=== PATIENT | female | born 1995 | race African-American/Black ===

== ENCOUNTER 2016-10-31 16:46 | Emergency (ER) | payer OTHER ==
[2016-10-31 17:36] VITALS: BP 116/91
--- NOTE | 2016-10-31 18:54 | UC ---
Abdominal Pain Female HPI - HPI Summary HPI Summary: HAD WHAT SHE THOUGHT WAS GAS PAIN 5 DAYS AGO. 2 DAYS AGO STARTED WITH PERIUMBILICAL PAIN THAT IS WORSE WITH INCREASED INTRA-ABDOMINAL PRESSURE ( COUGHING, LAUGHING, SNEEZING). NO NAUSEA, NO FEVER, NO URINARY SX. NO CHANGE IN BOWEL HABITS. LAST BM THIS MORNING WAS NORMAL. HAS NEVER BEEN . - History of Current Complaint Chief Complaint: UCAbdominalPain Stated Complaint: ABDOMINAL COMPLAINT Time Seen by Provider: 10/31/16 18:46 Hx Obtained From: Patient Hx Last Menstrual Period: 10/09/16 Onset/Duration: Gradual Onset, Lasting Days, Still Present Severity Initially: Moderate Severity Currently: Moderate Pain Intensity: 6 Pain Scale Used: 0-10 Numeric Location: Other - PERIUMBILICALLY Radiates: No Character: Sharp Aggravating Factor(s): Other: - COUGH, LAUGHING, SNEEZING Alleviating Factor(s): Spontaneous Resolution Associated Signs and Symptoms: Positive: Negative Allergies/Adverse Reactions: Allergies Allergy/AdvReac Type Severity Reaction Status Date / Time Sulfamethoxazole Allergy Severe Hives Verified 10/31/16 17:36 w/Trimethoprim [From Bactrim] Home Medications: Home Medications Control* 1 tab PO DAILY 10/31/16 [History Confirmed 10/31/16] Multiple Vitamins W/ Minerals [Multivitamin Adults] 1 tab PO DAILY 10/31/16 [ History Confirmed 10/31/16] PMH/Surg Hx/FS Hx/Imm Hx Respiratory History: Asthma - Surgical History Surgical History: None - Family History Known Family History: Positive: Diabetes - Social History Alcohol Use: Occasionally Substance Use Type: None Smoking Status (MU): Never Smoked Tobacco Review of Systems Constitutional: Negative Respiratory: Negative Cardiovascular: Negative Gastrointestinal: Abdominal Pain All Other Systems Reviewed And Are Negative: Yes Physical Exam Triage Information Reviewed: Yes Appearance: Well-Appearing, No Pain Distress, Well-Nourished Vital Signs: Initial Vital Signs Temp 98.1 F 10/31/16 17:32 Pulse 70 10/31/16 17:32 Resp 16 10/31/16 17:32 BP 116/91 10/31/16 17:32 Pulse Ox 100 10/31/16 17:32 Vital Signs Reviewed: Yes Eyes: Positive: Conjunctiva Clear ENT: Positive: Hearing grossly normal Neck: Positive: Supple Respiratory: Positive: No respiratory distress, No accessory muscle use Cardiovascular: Positive: Pulses Normal Abdomen Description: Positive: Soft, Other: - TTP PERIUMBILICALLY. NO REBOUND. DIASTASIS RECTI PALPATED. NO PALPABLE HERNIA. Negative: CVA Tenderness (R), CVA Tenderness (L), Distended, Guarding Musculoskeletal: Positive: No Edema Neurological: Positive: Alert Psychological: Positive: Age Appropriate Behavior - PT TEARFUL DUE TO PAIN AND ANXIETY Skin: Negative: rashes Abd Pain Female Course/Dx - Course Course Of Treatment: TO [facility] BY PRIVATE CAR - Differential Dx/Diagnosis Provider Diagnoses: ABDOMINAL PAIN, NOS Discharge - Discharge Plan Condition: Stable Disposition: OTHER Discharge Disposition Comment: TO [facility] BY PRIVATE CAR Patient Education Materials: Abdominal Pain (ED) Additional Instructions: GO DIRECTLY TO THE ER FROM HERE FOR FURTHER EVALUATION. CALL THE NUMBER BELOW FOR ASSISTANCE IN ESTABLISHING WITH A PCP An additional resource available to assist in finding the appropriate physician for your health care needs is the [facility] ([facility]). You may contact them by calling [phone].
== END 2016-10-31 19:00 ==
LOC: UCEAST 16:46
DX: R10.33 Periumbilical pain (principal); Z88.2 Allergy status to sulfonamides; Z88.1 Allergy status to other antibiotic agents
CPT/HCPCS: 99202; G0463

== ENCOUNTER → 2016-10-31 19:24 | Emergency (ER) | payer OTHER ==
[~2016-10-31 19:24] MED LIST: Iohexol 300* (CONTRAST) 10 ML SDV IV ONE; Ketorolac INJ* 30 MG/ML 1 ML VIAL IV ONE; Ondansetron INJ* 2 MG/ML VIAL IV ONE
[2016-11-01 01:37] LABS: Hematocrit 38 % (35-47); Hemoglobin 12.8 g/dl (12.0-16.0); Mean Corpuscular HGB Conc 34 g/dl (31-36); Mean Corpuscular Hemoglobin 28 pg (27-31); Mean Corpuscular Volume 83 fL (80-97); Mean Platelet Volume 8 um3 (7.4-10.4); Red Blood Count 4.52 10^6/ul (4.0-5.4); Red Cell Distribution Width 13 % (10.5-15); White Blood Count 8.8 10^3/ul (3.5-10.8)
[2016-11-01 01:42] LABS: Urine Bacteria Absent (Absent); Urine Bilirubin Negative (Negative); Urine Glucose Negative (Negative); Urine Nitrite Negative (Negative)
[2016-11-01 01:56] LABS: ALT 6 U/L (7-52); AST 10 U/L (13-39); Albumin 4.3 g/dL (3.2-5.2); Alkaline Phosphatase 30 U/L (34-104); Anion Gap 8 mmol/L (2-11); BUN/Creatinine Ratio 10.2 (8-20); Blood Urea Nitrogen 10 mg/dL (6-24); CO2 Carbon Dioxide 26 mmol/L (22-32); Calcium 9.1 mg/dL (8.6-10.3); Chloride 104 mmol/L (101-111); EGFR African American 92.1 (>60); EGFR Non-African American 71.6 (>60); Globulin 2.8 g/dL (2-4); Glucose 91 mg/dL (70-100); Lipase 33 U/L (11.0-82.0); Potassium 3.4 mmol/L (3.5-5.0); Sodium 138 mmol/L (133-145); Total Protein 7.1 g/dL (6.4-8.9)
--- NOTE | 2016-11-01 02:26 | ED ---
Abdominal Pain/Female - HPI Summary HPI Summary: 21F presents with periumbilical pain for 3 days. She states she has a history of umbilical hernia since she was a baby that was never fixed. She states pain in her belly button is worst when she coughs and she laughs. She denies any nausea or vomiting. she denies any diarrhea or constipation. She denies any fever. She denies ever feeling this pain before. She denies any vaginal discharge. She denies any hematuria, flank pain, or dysuria. She states pain comes and goes but has been more consistent. She had no previous abdominal surgeries. She was sent from urgent care for a CT. - History of Current Complaint Chief Complaint: EDAbdPain Stated Complaint: ABD PAIN/SENT BY [facility] Time Seen by Provider: 11/01/16 00:06 Hx Last Menstrual Period: 10/09/16 Pain Intensity: 5 Allergies/Adverse Reactions: Allergies Allergy/AdvReac Type Severity Reaction Status Date / Time Sulfamethoxazole Allergy Severe Hives Verified 10/31/16 19:31 w/Trimethoprim [From Bactrim] PMH/Surg Hx/FS Hx/Imm Hx Endocrine/Hematology History: Denies: Hx Anticoagulant Therapy Cardiovascular History: Denies: Hx Hypertension Respiratory History: Reports: Hx Asthma Infectious Disease History: No Infectious Disease History: Denies: Traveled Outside the [place] in Last 30 Days - Family History Known Family History: Positive: Diabetes - Social History Alcohol Use: Occasionally Substance Use Type: Reports: None Smoking Status (MU): Never Smoked Tobacco Review of Systems Negative: Fever Negative: Chest Pain Negative: Shortness Of Breath Positive: Abdominal Pain. Negative: Vomiting, Diarrhea, Nausea All Other Systems Reviewed And Are Negative: Yes Physical Exam Triage Information Reviewed: Yes Vital Signs On Initial Exam: Initial Vitals Temp Pulse Resp BP Pulse Ox 97.7 F 60 16 128/83 100 10/31/16 19:27 10/31/16 19:27 10/31/16 19:27 10/31/16 19:27 10/31/16 19:27 Vital Signs Reviewed: Yes Appearance: Positive: Well-Appearing Skin: Positive: Warm, Dry Head/Face: Positive: Normal Head/Face Inspection Eyes: Positive: Normal, EOMI, Conjunctiva Clear ENT: Positive: Normal ENT inspection, Pharynx normal, TMs normal Respiratory/Lung Sounds: Positive: Clear to Auscultation, Breath Sounds Present Cardiovascular: Positive: Normal, RRR Abdomen Description: Positive: Soft, Other: - tenderness periumbilicial Bowel Sounds: Positive: Present - Odalys Coma Scale Coma Scale Total: 15 Diagnostics - Vital Signs Vital Signs Temp Pulse Resp BP Pulse Ox 10/31/16 22:00 98.4 F 71 18 133/79 100 10/31/16 19:27 97.7 F 60 16 128/83 100 - Laboratory Lab Results: Lab Results 11/01/16 11/01/16 11/01/16 Range/Units 01:00 01:11 01:11 WBC 8.8 (3.5-10.8) 10^3/ul RBC 4.52 (4.0-5.4) 10^6/ul Hgb 12.8 (12.0-16.0) g/dl Hct 38 (35-47) % MCV 83 (80-97) fL MCH 28 (27-31) pg MCHC 34 (31-36) g/dl RDW 13 (10.5-15) % Plt Count 315 (150-450) 10^3/ul MPV 8 (7.4-10.4) um3 Neut % (Auto) 61.5 (38-83) % Lymph % (Auto) 29.9 (25-47) % Ashe % (Auto) 7.0 (1-9) % Eos % (Auto) 1.3 (0-6) % Baso % (Auto) 0.3 (0-2) % Absolute Neuts (auto) 5.4 (1.5-7.7) 10^3/ul Absolute Lymphs (auto) 2.6 (1.0-4.8) 10^3/ul Absolute Monos (auto) 0.6 (0-0.8) 10^3/ul Absolute Eos (auto) 0.1 (0-0.6) 10^3/ul Absolute Basos (auto) 0 (0-0.2) 10^3/ul Absolute Nucleated RBC 0 10^3/ul Nucleated RBC % 0 Sodium 138 (133-145) mmol/L Potassium 3.4 L (3.5-5.0) mmol/L Chloride 104 (101-111) mmol/L Carbon Dioxide 26 (22-32) mmol/L Anion Gap 8 (2-11) mmol/L BUN 10 (6-24) mg/dL Creatinine 0.98 H (0.51-0.95) mg/dL Est GFR ( Amer) 92.1 (>60) Est GFR (Non-Af Amer) 71.6 (>60) BUN/Creatinine Ratio 10.2 (8-20) Glucose 91 (70-100) mg/dL Calcium 9.1 (8.6-10.3) mg/dL Total Bilirubin 0.40 (0.2-1.0) mg/dL AST 10 L (13-39) U/L ALT 6 L (7-52) U/L Alkaline Phosphatase 30 L (34-104) U/L C-React Prot High Sens 7.89 mg/L Total Protein 7.1 (6.4-8.9) g/dL Albumin 4.3 (3.2-5.2) g/dL Globulin 2.8 (2-4) g/dL Albumin/Globulin Ratio 1.5 (1-3) Lipase 33 (11.0-82.0) U/L Beta HCG, Quant < 0.60 mIU/mL Urine Color Yellow Urine Appearance Cloudy Urine pH 6.0 (5-9) Ur Specific Hamilton 1.012 (1.010-1.030) Urine Protein Negative (Negative) Urine Ketones Negative (Negative) Urine Blood Negative (Negative) Urine Nitrate Negative (Negative) Urine Bilirubin Negative (Negative) Urine Urobilinogen Negative (Negative) Ur Leukocyte Esterase 2+ H (Negative) Urine WBC (Auto) Trace(0-5/hpf) (Absent) Urine RBC (Auto) Trace(0-2/hpf) (Absent) Ur Squamous Epith Cells Present H (Absent) Urine Bacteria Absent (Absent) Urine Glucose Negative (Negative) Result Diagrams: 11/01/16 01:11 11/01/16 01:00 Lab Statement: Any lab studies that have been ordered have been reviewed, and results considered in the medical decision making process. Abdominal Pain Fem Course/Dx - Course Course Of Treatment: 21F presents with periumbilical pain for 3 days. She states she has a history of umbilical hernia since she was a baby that was never fixed. She states pain in her belly button is worst when she coughs and she laughs. She denies any nausea or vomiting. she denies any diarrhea or constipation. She denies any fever. She denies ever feeling this pain before. She denies any vaginal discharge. She denies any hematuria, flank pain, or dysuria. She states pain comes and goes but has been more consistent. on exam tenderness umblicius. labs normal. will get CT. patient signed out to dr alonzo pending CT for disposition - Diagnoses Differential Diagnosis: Positive: Appendicitis, Urinary Tract Infection, Other - hernia Provider Diagnoses: Abdominal pain Discharge - Discharge Plan Condition: Good Disposition: OTHER Discharge Disposition Comment: signed out to dr alonzo pending CT
--- NOTE | 2016-11-01 05:26 | ED ---
Shanell Duque Alfonso, scribed for Rick Ellison MD on 11/01/16 at 0344 . Progress - Progress Note Progress Note: CT A/P reveals, per radiologist, 1.4 cm involuting right ovarian cyst with small amount of pelvic free fluid. No definite acute pathology. ED physician has reviewed this radiology report and agrees. Course/Dx - Course Course Of Treatment: DISCUSSED RESULTS OF LABS/CT WITH PATIENT. ON EXAM, HER UMBILICUS IS TENDER TO PALPATION. THERE IS NO INCARCERATED HERNIA ON CT. THE PLAN IS IBUPROFEN PRN AND F/U WITH [facility]; RETURN IF WORSE. - Diagnoses Provider Diagnoses: Abdominal pain, Ovarian cyst, Umbilical hernia The documentation as recorded by the Shanell landeros Alfonso accurately reflects the service I personally performed and the decisions made by me, Rick Ellison MD.
[2016-11-01 05:54] VITALS: BP 110/76
--- NOTE | 2016-11-01 08:02 | RAD ---
CLINICAL HISTORY: Periumbilical pain COMPARISON: None TECHNIQUE: Multiple contiguous axial CT scans were obtained of the abdomen and pelvis after the administration of intravenous contrast. Coronal and sagittal multiplanar reformations are submitted for review. Oral contrast was administered. Delayed images were obtained through the abdomen and pelvis. FINDINGS: LUNG BASES: The lung bases are clear. LIVER: The liver measures up to 19 cm in long axis. BILE DUCTS: There is no intrahepatic or extrahepatic biliary dilatation. GALLBLADDER: The gallbladder is normal, without pericholecystic inflammatory change. PANCREAS: The pancreas is normal, without mass or ductal dilatation. SPLEEN: Normal in size and appearance. UPPER GI TRACT: Evaluation of the gastrointestinal tract is limited by incomplete gastric distention. The upper GI tract is unremarkable. SMALL BOWEL AND MESENTERY: The small bowel is normal in contour, course, and caliber. There is no obstruction or dilatation. COLON: The colon is normal in contour, course, caliber. There is no pericolonic inflammatory change. There is a tubular, vermiform, hollow viscus that is blind ending, and originates from the cecum, consistent with a normal appendix. There is no periappendiceal inflammatory change. This is best seen on coronal image 39 ADRENALS: Normal bilaterally. KIDNEYS: The kidneys are normal in shape, size, contour, and axis. There is no hydronephrosis or nephrolithiasis. BLADDER: The bladder is smooth in contour. PELVIC ORGANS: There is a 1.4 cm right ovarian cyst. There is a small amount of free fluid within the pelvic cul-de-sac. AORTA: The aorta is normal. IVC: Unremarkable LYMPH NODES: There is no lymphadenopathy by size criteria. ABDOMINAL WALL: There is a fat-containing umbilical hernia. BONES AND SOFT TISSUES: The bones and soft tissues are unremarkable. OTHER: None IMPRESSION: 1. MILD HEPATOMEGALY. 2. RIGHT OVARIAN CYST WITH A SMALL AMOUNT OF FREE FLUID WITHIN THE PELVIC CUL-DE-SAC. THIS MAY BE PHYSIOLOGIC WITHIN A REPRODUCTIVE AGE FEMALE. 3. NORMAL APPENDIX. 4. FAT-CONTAINING UMBILICAL HERNIA.
== END | disposition home or self-care (01) ==
LOC: ED 19:24
DX: N83.209 Unspecified ovarian cyst, unspecified side (principal); K42.9 Umbilical hernia without obstruction or gangrene; R10.9 Unspecified abdominal pain
CPT/HCPCS: 36415; 74177; 80053; 81003; 81015; 83690; 84702; 85025; 86141; 87086; 96374; 96375; 99283; J1885; J2405; Q9967